=== PATIENT | female | born 1985 | race Two or more races ===

== ENCOUNTER 2019-12-20 00:51 | Emergency (ER) | payer MEDICAID, OTHER ==
[~2019-12-20] VITALS: Ht 165.1 cm; Wt 80.4 kg
--- NOTE | 2019-12-20 01:05 | NUR ---
Break RN: assumed care of pt on behalf of primary RN Hanny for lunch break only. pt hree for L foot pain and swelling with bruising after getting her foot caught in a rail at work. pt works in a [employer]. pt is ambulatory. CMS of foot intact. denies any other injuries. no othre c/o
--- NOTE | 2019-12-20 01:16 | NUR ---
Break RN: Dr. Acevedo has been to bedside for digna. pt foot elevated and ice pack applied. pt states that she has not taken anything for pain [employer]
[2019-12-20 02:21] VITALS: BP 114/68
== END 2019-12-20 02:25 | disposition home or self-care (01) ==
LOC: ED 01:21
DX: G89.11 Acute pain due to trauma (principal); M25.572 Pain in left ankle and joints of left foot
CPT/HCPCS: 99283